=== PATIENT | male | born 1990 | race Caucasian/White ===

== ENCOUNTER 2022-04-07 04:45 | Emergency (ER) | payer OTHER ==
[~2022-04-07] VITALS: Ht 165.1 cm; Wt 78.5 kg
[2022-04-07] MEDS ORDERED: LORAZEPAM 2MG/ML CPJ IV ONE (05:45)
[2022-04-07] MEDS ORDERED: VISCOUS LIDOCAINE 2% 15 ML UDC MM NR (05:45)
[2022-04-07] MEDS ORDERED: SODIUM CHLORIDE 0.9% 1,000 ML IV ONE (05:45)
[2022-04-07] MEDS ORDERED: ONDANSETRON HCL 4MG/2ML INJ IV NR (05:45)
[2022-04-07] MEDS ORDERED: MAGNESIUM/ALUMINUM HYDROXIDE/SIMETHICONE 30ML UDC PO NR (05:45)
[2022-04-07 06:17] LABS: CHLORIDE 106 mEq/L (98-107)
[2022-04-07 06:25] LABS: ETHANOL BLOOD < 10 mg/dL
[2022-04-07 06:40] LABS: EOSINOPHILS % 0.2 % (0.0-5.0); HEMATOCRIT. 46.2 % (42.0-52.0); HEMOGLOBIN. 15.9 g/dL (14.0-18.0); LYMPHOCYTES % 17.3 % (20.0-50.0); MEAN CORPUSCULAR HEMOGLOBIN 30.6 pg (28.0-32.0); MEAN CORPUSCULAR VOLUME 88.9 fL (80.0-94.0); MEAN PLATELET VOLUME 8.2 fl (7.4-10.4); MONOCYTES % 5.9 % (2.0-8.0); NEUTROPHILS % 75.6 % (40.0-76.0); PLATELET 455 x1000/uL (130-400); RED CELL DISTRIBUTION WIDTH 13.2 % (11.6-14.6)
[2022-04-07 09:40] LABS: CLARITY URINE CLEAR (CLEAR); COLOR URINE YELLOW (YELLOW); KETONES URINE NEGATIVE (NEGATIVE); LEUKOCYTE ESTERASE URINE NEGATIVE (NEGATIVE); NITRITE URINE NEGATIVE (NEGATIVE); OCCULT BLOOD URINE NEGATIVE (NEGATIVE); PH URINE 5.5 (4.5-8.0); PROTEIN URINE NEGATIVE (NEGATIVE); SPECIFIC GRAVITY URINE 1.014 (1.005-1.030); UROBILINOGEN URINE 0.2 E.U./dL (0.2-1.0)
[2022-04-07 09:59] LABS: *AMPHETAMINES SCREEN URINE NEGATIVE (NEGATIVE); *BARBITURATES SCREEN URINE NEGATIVE (NEGATIVE); *BENZODIAZEPINES SCREEN URINE NEGATIVE (NEGATIVE); *COCAINE SCREEN URINE PRESUMTIVE POSITIVE (NEGATIVE); CANNABINOID URINE SCREEN NEGATIVE (NEGATIVE); METHADONE URINE SCREEN NEGATIVE (NEGATIVE); OPIATES URINE SCREEN NEGATIVE (NEGATIVE); PHENCYCLIDINE URINE SCREEN NEGATIVE (NEGATIVE)
[2022-04-07] MEDS ORDERED: ONDA4TAB50 MT (10:14)
[2022-04-07 10:30] VITALS: BP 131/84
== END 2022-04-07 10:30 | disposition home or self-care (01) ==
LOC: ER 04:45
DX: T39.1X1A Poisoning by 4-Aminophenol derivatives, accidental (unintentional), initial encounter (principal); R00.2 Palpitations; R11.0 Nausea; R10.13 Epigastric pain; G47.00 Insomnia, unspecified; Y92.013 Bedroom of single-family (private) house as the place of occurrence of the external cause
CPT/HCPCS: 36415; 71045; 80053; 80305; 80307; 80320; 80329; 81003; 85025; 96374; 96375; 99285; J2060; J2405; J7030; G0480